=== PATIENT | male | born 1985 | race Caucasian/White ===

== ENCOUNTER 2023-02-26 09:23 | Outpatient (CLI) | payer OTHER, SELFPAY ==
--- NOTE | 2023-03-01 16:33 | WPDHOLTEREM ---
Holter/Event Monitor Holter/Event Monitor Date of procedure: 02/26/23 Holter/Event Procedure: 48 Hr Holter Monitor Indications: Palpitations Conclusion: 1. 48 hour holter monitor on 02/26/23. 2. Underlying rhythm is sinus rhythm. HR range 44-136 bpm; average HR 73 bpm. HR at 44 bpm was at 02:59. HR at 136 bpm was at 10:03. 3. There are 25 premature supraventricular complexes and 1 supraventricular couplet. No supraventricular tachycardia. 4. There are 2 premature ventricular complexes. No ventricular tachycardia. 5. No sinoatrial or atrioventricular blocks. No significant pauses greater than 2 seconds. 6. No symptoms available for correlation.
== END 2023-02-26 09:24 | disposition home or self-care (01) ==
LOC: ANHCARD 09:24
PROVIDERS: Visit Provider Physician Assistant Medical
DX: R00.2 Palpitations (principal)
CPT/HCPCS: 93225; 93226